=== PATIENT | male | born 1975 | race Caucasian/White ===

== ENCOUNTER → 2021-01-04 | Outpatient (CLI) | payer OTHER ==
[~2021-01-04] MED LIST: DESYREL 50MG50 MG PO; NORCO 325 MG-51 TA1 PO; PAXIL10 M1 PO; PRILOSEC 20MG20 MG PO
== END ==
LOC: LAB 14:30
DX: B34.9 Viral infection, unspecified (principal); Z20.822 Contact with and (suspected) exposure to COVID-19

== ENCOUNTER → 2022-06-05 | Outpatient (CLI) | payer SELFPAY | LOC: RAD 09:17 | DX: S61.041A Puncture wound with foreign body of right thumb without damage to nail, initial encounter (principal) ==